=== PATIENT | male | born 1985 | race Caucasian/White ===

== ENCOUNTER 2017-04-18 00:25 | Emergency (ER) | payer MEDICAID ==
[~2017-04-18] VITALS: Ht 185.4 cm; Wt 103.8 kg
[2017-04-18 00:30] VITALS: BP 143/91
[2017-04-18] MEDS ORDERED: HYDROcodone/APAP 5/325 TABLET PO ONE (01:30)
[2017-04-18] MEDS ORDERED: BACITRACIN ZINC OINT 500U/GM, 0.9 GM TP ONE (01:30)
[2017-04-18] MEDS ORDERED: HYDROcodone/APAP 5/325 TABLET ONE (02:01)
[2017-04-18] MEDS ORDERED: BACITRACIN ZINC OINT 500U/GM, 0.9 GM ONE (02:02)
== END 2017-04-18 02:30 | disposition home or self-care (01) ==
LOC: ED 01:23
DX: S80.211A Abrasion, right knee, initial encounter (principal); W01.0XXA Fall on same level from slipping, tripping and stumbling without subsequent striking against object, initial encounter; Y93.89 Activity, other specified; Y92.098 Other place in other non-institutional residence as the place of occurrence of the external cause; Y99.8 Other external cause status
CPT/HCPCS: 99284

== ENCOUNTER 2018-05-30 07:55 | Emergency (ER) | payer SELFPAY ==
[~2018-05-30] VITALS: Ht 188 cm; Wt 104.0 kg
[2018-05-30 07:56] VITALS: BP 146/83
[2018-05-30] MEDS ORDERED: DICYCLOMINE 20 MG TABLET ONE (08:18)
[2018-05-30] MEDS ORDERED: ONDANSETRON ODT 4 MG ONE (08:18)
[2018-05-30] MEDS ORDERED: ONDANSETRON ODT 4 MG PO ONE (08:30)
[2018-05-30] MEDS ORDERED: DICYCLOMINE 20 MG TABLET PO ONE (08:30)
[2018-05-30 08:42] LABS: MICROSCOPIC NOT IND
[2018-05-30 08:42] LABS: BASOPHILS # (AUTO) 0.05 x10^3/uL (0-0.1); BASOPHILS % (AUTO) 1 % (0-1); EOSINOPHILS # (AUTO) 0.13 x10^3/uL (0-0.4); EOSINOPHILS % (AUTO) 2 % (1-7); LYMPHOCYTES % (AUTO) 23 % (22-44); MD NO; MEAN CORPUSCULAR HEMOGLOBIN 30.6 pg (27.5-34.5); MEAN CORPUSCULAR HGB CONC 34.2 g/dL (33.2-36.2); MEAN CORPUSCULAR VOLUME 89.4 fL (81-97); MEAN PLATELET VOLUME 9.6 fL (7.4-10.4); MONOCYTES # (AUTO) 0.38 x10^3/uL (0.2-0.8); MONOCYTES % (AUTO) 6 % (2-9); NEUTROPHILS # (AUTO) 4.79 x10^3/uL (1.8-6.8); NEUTROPHILS % (AUTO) 69 % (42-75); PLATELET COUNT 176 x10^3/uL (130-400); RED BLOOD COUNT 5.08 x10^6/uL (4.38-5.82); RED CELL DISTRIBUTION WIDTH 12.6 % (9.4-14.8)
[2018-05-30 08:46] LABS: CULTURE INDICATED? NO
[2018-05-30 08:53] LABS: ALBUMIN 4.1 g/dL (3.4-5.0); ANION GAP 5 mmol/L (5-15); CALCIUM 8.6 mg/dL (8.5-10.1); CHLORIDE 109 mmol/L (98-107)
[2018-05-30 08:56] LABS: ALANINE AMINOTRANSFERASE 34 U/L (12-78); ALKALINE PHOSPHATASE 127 U/L (45-117); BILIRUBIN,TOTAL 0.4 mg/dL (0.2-1.0); CREATININE 0.93 mg/dL (0.7-1.3); TOTAL PROTEIN 7.6 g/dL (6.4-8.2)
== END 2018-05-30 09:42 | disposition home or self-care (01) ==
LOC: ED 09:41
DX: K52.9 Noninfective gastroenteritis and colitis, unspecified (principal); Z90.89 Acquired absence of other organs
CPT/HCPCS: 36415; 80053; 81003; 83690; 85025; 99284; Q0162

== ENCOUNTER 2019-05-03 05:53 | Emergency (ER) | payer OTHER ==
[~2019-05-03] VITALS: Ht 188 cm; Wt 115.0 kg
[2019-05-03 05:54] VITALS: BP 129/77
[2019-05-03] MEDS ORDERED: NEOSPORIN OINT. PKT 1 PACKET ONE (06:26)
== END 2019-05-03 06:35 | disposition home or self-care (01) ==
LOC: ED 06:23
DX: S51.811D Laceration without foreign body of right forearm, subsequent encounter (principal); Z48.02 Encounter for removal of sutures; X58.XXXD Exposure to other specified factors, subsequent encounter
CPT/HCPCS: 99283

== ENCOUNTER 2021-03-29 09:20 | Emergency (ER) | payer SELFPAY ==
[~2021-03-29] VITALS: Ht 188 cm; Wt 119.0 kg
--- NOTE | 2021-03-29 09:45 | NUR ---
this is a 35 yr old male who presents today to the er for some swelling and what appears to be a mass on the inside of his left bicep. pt denies any iv drug use and has multiple wounds and scabs from what he states starts as a pimple then erupts into a scab. pt denies any hx of mrsa or any other drug resistant organisms
[2021-03-29 10:37] LABS: BASOPHILS % (AUTO) 1 % (0-1); EOSINOPHILS % (AUTO) 1 % (1-7); LYMPHOCYTES % (AUTO) 17 % (22-44); MEAN CORPUSCULAR HEMOGLOBIN 30.8 pg (27.5-34.5); MEAN CORPUSCULAR HGB CONC 35.1 g/dL (33.2-36.2); MEAN PLATELET VOLUME 9.4 fL (7.4-10.4); MONOCYTES % (AUTO) 7 % (2-9); NEUTROPHILS % (AUTO) 75 % (42-75); PLATELET COUNT 222 x10^3/uL (130-400); RED CELL DISTRIBUTION WIDTH 12.2 % (9.4-14.8)
[2021-03-29 10:49] LABS: ALANINE AMINOTRANSFERASE 24 U/L (12-78); ALBUMIN 3.8 g/dL (3.4-5.0); ANION GAP 6 mmol/L (5-15); CHLORIDE 108 mmol/L (98-107); CREATININE 0.82 mg/dL (0.7-1.3)
[2021-03-29 10:51] LABS: ALKALINE PHOSPHATASE 133 U/L (45-117); BILIRUBIN,TOTAL 0.6 mg/dL (0.2-1.0); TOTAL PROTEIN 8.1 g/dL (6.4-8.2)
[2021-03-29 11:13] VITALS: BP 134/87
== END 2021-03-29 11:40 | disposition home or self-care (01) ==
LOC: ED 11:34
DX: R21 Rash and other nonspecific skin eruption (principal); L04.2 Acute lymphadenitis of upper limb; H35.382 Toxic maculopathy, left eye; F17.210 Nicotine dependence, cigarettes, uncomplicated
CPT/HCPCS: 36415; 80053; 85025; 99284